=== PATIENT | female | born 1970 | race Caucasian/White ===

== ENCOUNTER 2020-11-02 02:43 | Emergency (ER) | payer BC ==
[2020-11-02] MEDS ORDERED: METHYLPREDNISOLONE 125 MG INJ ONE (03:41)
[2020-11-02] MEDS ORDERED: LORazepam 2 MG/ML VIAL ONE (03:42)
[2020-11-02] MEDS ORDERED: DIPHENHYDRAMINE 50 MG/ML VIAL ONE (03:42)
[2020-11-02] MEDS ORDERED: NA CHLORIDE 0.9% 1,000 ML ONE (03:42)
[2020-11-02] MEDS ORDERED: ONDANSETRON 4 MG/2 ML VIAL ONE (03:42)
[2020-11-02 03:47] LABS: Absolute Lymphocytes (CBC) 2.1 K/uL (0.7-4.9); Basophils % 0.5 % (0-1.3); Hematocrit 42.8 % (36.0-45.0); Lymphocytes % 27.7 % (15.3-44.8); MPV 8.7 fL (7.6-11.3); RBC Red Blood Cell Count 4.64 M/uL (3.86-4.86)
[2020-11-02 04:00] LABS: Albumin 3.6 g/dL (3.4-5.0); Bilirubin Direct 0.1 mg/dL (0-0.2); Bilirubin Total 0.5 mg/dL (0.2-1.0); Magnesium 2.4 mg/dL (1.8-2.4); Potassium 3.4 mmol/L (3.5-5.1); Protein, Total 7.1 g/dL (6.4-8.2)
--- NOTE | 2020-11-02 04:56 | ER ---
Nurse's Notes [facility] Name: Fernanda Booker Age: 49 yrs Sex: Female : 1970 Arrival Date: 11/02/2020 Time: 02:44 Bed 12 Private MD: Diagnosis: Rash and other nonspecific skin eruption Presentation: 11/02 02:50 Chief complaint: Patient states: COVID sine Saturday before last, started on Zithromax iw and Medrol pack yesterday, tonight she broke out in red rash on her face ,feels really hot. Coronavirus screen: Client presents with at least one sign or symptom that may indicate coronavirus-19. Client reports previous positive COVID test result. Ebola Screen: Patient negative for fever greater than or equal to 101.5 degrees Fahrenheit, and additional compatible Ebola Virus Disease symptoms Patient denies exposure to infectious person. Patient denies travel to an Ebola-affected area in the 21 days before illness onset. No symptoms or risks identified at this time. Onset: The symptoms/episode began/occurred today. Anaphylaxis evaluation, no signs or symptoms of anaphylaxis were noted. Initial Sepsis Screen: Does the patient meet any 2 criteria? No. Patient's initial sepsis screen is negative. Does the patient have a suspected source of infection? No. Patient's initial sepsis screen is negative. Risk Assessment: Do you want to hurt yourself or someone else? Patient reports no desire to harm self or others. Onset of symptoms was November 02, 2020. 02:50 Method Of Arrival: Ambulatory iw 02:50 Acuity: TATIANA 3 iw Historical: - Allergies: 02:53 SHELLFISH; iw - Home Meds: 02:53 losartan 100 mg oral tab 1 tab once daily [Active]; sertraline 100 mg oral tab 1 tab iw once daily [Active]; - PMHx: 02:53 Hypertensive disorder; Anxiety; iw - PSHx: 02:53 hysterectomy; iw - Immunization history:: Client reports receiving the Mario \T\ Mario single-dose vaccine. - Social history:: Smoking status: Patient denies any tobacco usage or history of. Patient/guardian denies using alcohol, street drugs, The patient lives with family. - Family history:: not pertinent. Screenin:22 Abuse screen: Denies threats or abuse. Nutritional screening: No deficits noted. em Tuberculosis screening: No symptoms or risk factors identified. Fall Risk None identified. Assessment: 03:30 General: Appears in no apparent distress. comfortable, Behavior is cooperative, em anxious. Pain: Denies pain. Neuro: Level of Consciousness is awake, alert, obeys commands, Oriented to person, place, time, situation. Cardiovascular: Capillary refill < 3 seconds Patient's skin is warm and dry. Respiratory: Airway is patent Respiratory effort is even, unlabored, Respiratory pattern is regular, symmetrical. Derm: Rash noted that is urticaria, on face, right arm and left arm. Musculoskeletal: Capillary refill < 3 seconds, Range of motion: intact in all extremities. 04:23 Reassessment: Patient appears in no apparent distress at this time. Patient is alert, em oriented x 3, equal unlabored respirations, skin warm/dry/pink. Patient states feeling better. Patient states symptoms have improved. 05:07 Respiratory: Breath sounds are clear. wg Vital Signs: 02:50 BP 200 / 107; Pulse 84; Resp 16; Temp 98.4; Pulse Ox 100% on R/A; Weight 72.57 kg; iw Height 5 ft. 8 in. (172.72 cm); 03:25 BP 193 / 90; em 04:21 BP 145 / 85; Pulse 76; Resp 18; Pulse Ox 96% on R/A; em 05:05 BP 151 / 78; Pulse 86; Resp 18; Pulse Ox 100% on R/A; Pain 0/10; wg 02:50 Body Mass Index 24.33 (72.57 kg, 172.72 cm) iw ED Course: 02:44 Patient arrived in ED. wm 02:53 Triage completed. iw 02:54 Edelmira Calixto MD is Attending Physician. ma2 02:54 Arm band placed on. iw 03:14 Kirby Santos, RN is Primary Nurse. em 03:22 Patient has correct armband on for positive identification. em 03:22 No provider procedures requiring assistance completed. em 03:30 Initial lab(s) drawn, by me, sent to lab. Inserted saline lock: 20 gauge in right em antecubital area, using aseptic technique. Blood collected. 05:06 IV discontinued, intact, bleeding controlled, No redness/swelling at site. Pressure wg dressing applied. Administered Medications: 03:31 Drug: NS 0.9% 1000 ml Route: IV; Rate: 1 bolus; Site: right antecubital; em 05:08 Follow up: IV Status: Completed infusion; IV Intake: 1000ml wg 03:31 Drug: Zofran (Ondansetron) 4 mg Route: IVP; Site: right antecubital; em 05:08 Follow up: Response: No adverse reaction wg 03:31 Drug: Ativan (LORazepam) 0.5 mg Route: IVP; Site: right antecubital; em 05:08 Follow up: Response: No adverse reaction wg 03:31 Drug: Benadryl (diphenhydrAMINE) 50 mg Route: IVP; Site: right antecubital; em 05:08 Follow up: Response: No adverse reaction wg 03:31 Drug: SOLU-Medrol (methylPrednisoLONE) 125 mg Route: IVP; Site: right antecubital; em 05:07 Follow up: Response: No adverse reaction wg Intake: 05:08 IV: 1000ml; Total: 1000ml. wg Outcome: 04:56 Discharge ordered by MD. herring 05:06 Discharged to home ambulatory. wg 05:06 Condition: stable 05:06 Discharge instructions given to patient, Instructed on discharge instructions, follow up and referral plans. medication usage, Demonstrated understanding of instructions, follow-up care, medications, Prescriptions given X 2. 05:09 Patient left the ED. wg Signatures: Kirby Santos RN RN em Williams, Irene, RN RN iw Alzahri, Mohammad, MD MD ma2 Marsh, Wendy wm Gamba, Liam, RN wg Corrections: (The following items were deleted from the chart) 02:54 02:53 Allergies: No Known Allergies; [facility]
--- NOTE | 2020-11-02 04:56 | EDPHYS ---
Physician Documentation [facility] Name: Fernanda Booker Age: 49 yrs Sex: Female : 1970 Arrival Date: 11/02/2020 Time: 02:44 Bed 12 Private MD: ED Physician Edelmira Calixto HPI: 11/02 03:11 This 49 yrs old Female presents to ER via Ambulatory with complaints of ma2 Allergic Reaction, + Covid. 03:11 The patient presents with itching, redness of skin. Onset: The symptoms/episode ma2 began/occurred gradually, 1 hour(s) ago. Associated signs and symptoms: Pertinent positives: hives, rash, Pertinent negatives: chest pain, fever, headache, Light headed nausea, swelling. Severity of symptoms: At their worst the symptoms were mild in the emergency department the symptoms are unchanged. The patient has not experienced similar symptoms in the past. Historical: - Allergies: 02:53 SHELLFISH; iw - Home Meds: 02:53 losartan 100 mg oral tab 1 tab once daily [Active]; sertraline 100 mg oral tab 1 tab iw once daily [Active]; - PMHx: 02:53 Hypertensive disorder; Anxiety; iw - PSHx: 02:53 hysterectomy; iw - Immunization history:: Client reports receiving the Mario \T\ Mario single-dose vaccine. - Social history:: Smoking status: Patient denies any tobacco usage or history of. Patient/guardian denies using alcohol, street drugs, The patient lives with family. - Family history:: not pertinent. ROS: 03:11 Constitutional: Negative for fever, chills, and weight loss. ma2 03:11 All other systems are negative. Exam: 03:11 Constitutional: This is a well developed, well nourished patient who is awake, alert, ma2 and in no acute distress. Head/Face: there is facial redness and warmth, airway is wnl, no swelling or stridor, no tongu swelling, otherwise Normocephalic, atraumatic. Eyes: Pupils equal round and reactive to light, extra-ocular motions intact. Lids and lashes normal. Conjunctiva and sclera are non-icteric and not injected. Cornea within normal limits. Periorbital areas with no swelling, redness, or edema. ENT: Nares patent. No nasal discharge, no septal abnormalities noted. Tympanic membranes are normal and external auditory canals are clear. Oropharynx with no redness, swelling, or masses, exudates, or evidence of obstruction, uvula midline. Mucous membranes moist. Neck: Trachea midline, no thyromegaly or masses palpated, and no cervical lymphadenopathy. Supple, full range of motion without nuchal rigidity, or vertebral point tenderness. No Meningismus. Chest/axilla: Normal chest wall appearance and motion. Nontender with no deformity. No lesions are appreciated. Cardiovascular: Regular rate and rhythm with a normal S1 and S2. No gallops, murmurs, or rubs. Normal PMI, no JVD. No pulse deficits. Respiratory: Lungs have equal breath sounds bilaterally, clear to auscultation and percussion. No rales, rhonchi or wheezes noted. No increased work of breathing, no retractions or nasal flaring. Abdomen/GI: Soft, non-tender, with normal bowel sounds. No distension or tympany. No guarding or rebound. No evidence of tenderness throughout. Back: No spinal tenderness. No costovertebral tenderness. Full range of motion. Skin: Warm, dry with normal turgor. Normal color with no rashes, no lesions, and no evidence of cellulitis. MS/ Extremity: Pulses equal, no cyanosis. Neurovascular intact. Full, normal range of motion. Neuro: Awake and alert, GCS 15, oriented to person, place, time, and situation. Cranial nerves II-XII grossly intact. Motor strength 5/5 in all extremities. Sensory grossly intact. Cerebellar exam normal. Normal gait. Vital Signs: 02:50 BP 200 / 107; Pulse 84; Resp 16; Temp 98.4; Pulse Ox 100% on R/A; Weight 72.57 kg; iw Height 5 ft. 8 in. (172.72 cm); 03:25 BP 193 / 90; em 04:21 BP 145 / 85; Pulse 76; Resp 18; Pulse Ox 96% on R/A; em 05:05 BP 151 / 78; Pulse 86; Resp 18; Pulse Ox 100% on R/A; Pain 0/10; wg 02:50 Body Mass Index 24.33 (72.57 kg, 172.72 cm) iw MDM: 02:54 Patient medically screened. ma2 03:11 Differential diagnosis: urticaria, Vasovagal Reactions. al2 04:55 Data reviewed: vital signs, nurses notes. Counseling: I had a detailed discussion with [facility] the patient and/or guardian regarding: the historical points, exam findings, and any diagnostic results supporting the discharge/admit diagnosis, the presence of at least one elevated blood pressure reading (>120/80) during this emergency department visit, the need for outpatient follow up. Response to treatment: the patient's symptoms have markedly improved after treatment. 11/02 03:10 Order name: Basic Metabolic Panel [facility] 11/02 03:10 Order name: CBC with Diff; Complete Time: 03:56 [facility] 11/02 03:10 Order name: LFT's; Complete Time: 04:56 [facility] 11/02 03:10 Order name: Magnesium; Complete Time: 04:56 [facility] 11/02 03:10 Order name: Basic Metabolic Panel; Complete Time: 04:56 [facility] 11/02 03:10 Order name: Cardiac monitoring; Complete Time: 03:31 [facility] 11/02 03:10 Order name: EKG - Nurse/Tech; Complete Time: 03:26 [facility] 11/02 03:10 Order name: IV Saline Lock; Complete Time: 03:31 [facility] 11/02 03:10 Order name: Labs collected and sent; Complete Time: 03:31 [facility] 11/02 03:10 Order name: O2 Per Protocol; Complete Time: 03:26 [facility] 11/02 03:10 Order name: O2 Sat Monitoring; Complete Time: 03:26 al2 Administered Medications: 03:31 Drug: NS 0.9% 1000 ml Route: IV; Rate: 1 bolus; Site: right antecubital; em 05:08 Follow up: IV Status: Completed infusion; IV Intake: 1000ml wg 03:31 Drug: Zofran (Ondansetron) 4 mg Route: IVP; Site: right antecubital; em 05:08 Follow up: Response: No adverse reaction wg 03:31 Drug: Ativan (LORazepam) 0.5 mg Route: IVP; Site: right antecubital; em 05:08 Follow up: Response: No adverse reaction wg 03:31 Drug: Benadryl (diphenhydrAMINE) 50 mg Route: IVP; Site: right antecubital; em 05:08 Follow up: Response: No adverse reaction 03:31 Drug: SOLU-Medrol (methylPrednisoLONE) 125 mg Route: IVP; Site: right antecubital; em 05:07 Follow up: Response: No adverse reaction wg Disposition Summary: 11/02/20 04:56 Discharge Ordered Location: Home ma2 Condition: Stable ma2 Diagnosis - Rash and other nonspecific skin eruption ma2 Followup: ma2 - With: Private Physician - When: Tomorrow - Reason: Continuance of care Discharge Instructions: - Discharge Summary Sheet ma2 - Rash, Adult ma2 Forms: - Medication Reconciliation Form ma2 - Thank You Letter ma2 - Antibiotic Education ma2 - Prescription Opioid Use ma2 Prescriptions: - Benadryl 25 mg Oral Capsule - take 1 capsule by ORAL route every 6 hours As needed; 30 tablet; Refills: 0, ma2 Product Selection Permitted - Pepcid 20 mg Oral Tablet - take 1 tablet by ORAL route every 12 hours for 10 days; 20 tablet; Refills: 0, ma2 Product Selection Permitted Signatures: Dispatcher [employer] Kirby Velez RN RN em Williams, Irene, RN RN Edelmira Calixto MD MD ma2 Giovanni Melvin RN wg Corrections: (The following items were deleted from the chart) 02:54 02:53 Allergies: No Known Allergies; [facility]
[2020-11-02 05:15] VITALS: TEMP 98.4
[2020-11-02 05:19] VITALS: BP 151/78; O2SAT 100
--- NOTE | 2020-11-02 12:50 | EKG ---
Test Date: 2020-11-02 Test Time: 03:20:35 Loading Machine Adjuster: ALMA MEASUREMENT RESULTS: Intervals: Rate: 64 WY: 140 QRSD: 84 QT: 428 QTc: 441 Shirley: P: 57 WY: 140 QRS: 50 T: 65 INTERPRETIVE STATEMENTS: Normal sinus rhythm Normal ECG No previous ECG available for comparison Electronically Signed On 11-02-20 12:50:20 CDT by Byron Russo
== END 2020-11-02 05:09 | disposition home or self-care (01) ==
LOC: ER 02:43
DX: R21 Rash and other nonspecific skin eruption (principal); I10 Essential (primary) hypertension; F41.9 Anxiety disorder, unspecified; Z91.013 Allergy to seafood
CPT/HCPCS: 96361; 93005; 85025; 80048; 36415; 83735; 80076; 96375; 96374; 99284; J1200; J7030; J2930; J2405

== ENCOUNTER 2022-10-03 10:36 | Emergency (ER) | payer BC, OTHER ==
[2022-10-03 11:05] LABS: Specific Gravity 1.019 (1.005-1.030)
[2022-10-03] MEDS ORDERED: DIAZEPAM 5 MG TABLET ONE (11:10)
[2022-10-03] MEDS ORDERED: ONDANSETRON 4 MG/2 ML VIAL ONE (11:11)
[2022-10-03] MEDS ORDERED: NA CHLORIDE 0.9% 1,000 ML ONE (11:11)
[2022-10-03] MEDS ORDERED: KETOROLAC 30 MG/ML INJ ONE (11:11)
[2022-10-03] MEDS ORDERED: FENTANYL CITR 100 MCG/2 ML ONE (11:11)
[2022-10-03] MEDS ORDERED: dexAMETHasone 10 MG/ML VIAL ONE (11:11)
[2022-10-03 11:16] LABS: Specific Gravity 1.019 (1.005-1.030); Urine Bacteria <20 /HPF (<20); Urine Bilirubin NEGATIVE (Negative); Urine Blood Negative (Negative); Urine Clarity Extremely Turbid (Clear); Urine Color Light-Yellow (Yellow); Urine Glucose NEGATIVE (Negative); Urine Mucus Slight /HPF (None Seen); Urine Protein TRACE (Negative); Urine Urobilinogen Normal (Normal)
[2022-10-03 11:18] LABS: Absolute Lymphocytes (CBC) 1.2 K/uL (0.7-4.9); Hematocrit 42.3 % (36.0-45.0); Lymphocytes % 22.2 % (15.3-44.8); MCV 90.9 fL (80-100); MPV 8.7 fL (7.6-11.3); RBC Red Blood Cell Count 4.65 M/uL (3.86-4.86)
[2022-10-03 11:22] LABS: Albumin 3.7 g/dL (3.4-5.0); Bilirubin Total 1.7 mg/dL (0.2-1.0); Potassium 3.4 mEq/L (3.5-5.1); Protein, Total 7.1 g/dL (6.4-8.2)
--- NOTE | 2022-10-03 12:02 | RAD REPORT ---
EXAM DESCRIPTION: CTSpine Lumbar Wo Con10/03/2022 11:16 am CLINICAL HISTORY: Right leg radiculopathy COMPARISON: None TECHNIQUE: Computed axial tomography lumbar spine was obtained with coronal and sagittal reconstruct ion. All CT scans are performed using dose optimization technique as appropriate and may include automated exposure control or mA/KV adjustment according to patient size. FINDINGS: No fracture is seen. No dislocation Mild ligamentum flavum and set hypertrophy L3-4. Thecal sac 10 millimeters. Neural foramina patent Small to moderate right posterolateral disc herniation suspected L4-5. Mild spondylosis L5-S1 IMPRESSION: Small to moderate right posterolateral disc herniation is suspected at L4-5. Further braulio luation with nonemergent MRI could be obtained
[2022-10-03] MEDS ORDERED: POTASSIUM 25 MEQ EFFERV TAB ONE (12:08)
--- NOTE | 2022-10-03 12:09 | EDPHYS ---
Physician Documentation [facility] Name: Fernanda Das Age: 51 yrs Sex: Female : 1970 Arrival Date: 10/03/2022 Time: 10:36 Bed 19 Private MD: SAVANNA Physician Eric Clemens HPI: 10/03 10:49 This 51 yrs old Female presents to ER via EMS with complaints of back pain to paz right leg. 10:49 The patient presents with pain that is acute, and decreased range of motion. The paz symptoms are located in the low back, lumbar area and right low back. Onset: The symptoms/episode began/occurred 1 day(s) ago. The pain radiates to the right low back. Associated signs and symptoms: The patient has no apparent associated signs or symptoms. The problem was sustained when lifting boxes. Modifying factors: The patient symptoms are alleviated by nothing, remaining still, rest, the patient symptoms are aggravated by lifting, movement, standing. Severity of symptoms: At their worst the symptoms were moderate, in the emergency department the symptoms are unchanged. Historical: - Allergies: 10:44 SHELLFISH; ld1 - Home Meds: 10:44 losartan 100 mg Oral tab 1 tab once daily [Active]; sertraline 100 mg Oral tab 1 tab ld1 once daily [Active]; - PMHx: 10:44 Anxiety; Hypertensive disorder; ld1 - PSHx: 10:44 hysterectomy; Appendectomy; ld1 - Immunization history:: Adult Immunizations up to date, Client reports receiving the 2nd dose of the Covid vaccine. - Social history:: Smoking status: Patient denies any tobacco usage or history of. Patient/guardian denies using alcohol. - Family history:: not pertinent. ROS: 10:49 Constitutional: Negative for fever, chills, and weight loss, Eyes: Negative for injury, paz pain, redness, and discharge, ENT: Negative for injury, pain, and discharge, Neck: Negative for injury, pain, and swelling, Cardiovascular: Negative for chest pain, palpitations, and edema, Respiratory: Negative for shortness of breath, cough, wheezing, and pleuritic chest pain, Abdomen/GI: Negative for abdominal pain, nausea, vomiting, diarrhea, and constipation, : Negative for injury, bleeding, discharge, and swelling, MS/Extremity: Negative for injury and deformity, Skin: Negative for injury, rash, and discoloration, Neuro: Negative for headache, weakness, numbness, tingling, and seizure, Psych: Negative for depression, anxiety, suicide ideation, homicidal ideation, and hallucinations, Allergy/Immunology: Negative for hives, rash, and allergies, Endocrine: Negative for neck swelling, polydipsia, polyuria, polyphagia, and marked weight changes, Hematologic/Lymphatic: Negative for swollen nodes, abnormal bleeding, and unusual bruising. 10:49 Back: Positive for pain at rest, pain with movement, radiated pain, of the right low back. Exam: 10:49 Constitutional: This is a well developed, well nourished patient who is awake, alert, paz and in no acute distress. Head/Face: Normocephalic, atraumatic. Eyes: Pupils equal round and reactive to light, extra-ocular motions intact. Lids and lashes normal. Conjunctiva and sclera are non-icteric and not injected. Cornea within normal limits. Periorbital areas with no swelling, redness, or edema. ENT: Nares patent. No nasal discharge, no septal abnormalities noted. Tympanic membranes are normal and external auditory canals are clear. Oropharynx with no redness, swelling, or masses, exudates, or evidence of obstruction, uvula midline. Mucous membranes moist. Neck: Trachea midline, no thyromegaly or masses palpated, and no cervical lymphadenopathy. Supple, full range of motion without nuchal rigidity, or vertebral point tenderness. No Meningismus. Chest/axilla: Normal chest wall appearance and motion. Nontender with no deformity. No lesions are appreciated. Cardiovascular: Regular rate and rhythm with a normal S1 and S2. No gallops, murmurs, or rubs. Normal PMI, no JVD. No pulse deficits. Respiratory: Lungs have equal breath sounds bilaterally, clear to auscultation and percussion. No rales, rhonchi or wheezes noted. No increased work of breathing, no retractions or nasal flaring. Abdomen/GI: Soft, non-tender, with normal bowel sounds. No distension or tympany. No guarding or rebound. No evidence of tenderness throughout. Skin: Warm, dry with normal turgor. Normal color with no rashes, no lesions, and no evidence of cellulitis. MS/ Extremity: Pulses equal, no cyanosis. Neurovascular intact. Full, normal range of motion. Neuro: Awake and alert, GCS 15, oriented to person, place, time, and situation. Cranial nerves II-XII grossly intact. Motor strength 5/5 in all extremities. Sensory grossly intact. Cerebellar exam normal. Normal gait. Psych: Awake, alert, with orientation to person, place and time. Behavior, mood, and affect are within normal limits. 10:49 Back: pain, that is mild, that is moderate, ROM is painful, normal spinal alignment noted, CVA tenderness, is absent, vertebral tenderness, is not appreciated, muscle spasm, is appreciated in the left low back, left mid back, right mid back and right low back. Vital Signs: 10:42 BP 139 / 86; Pulse 65; Resp 18; Temp 98.2(O); Pulse Ox 100% on R/A; Weight 72.57 kg; ld1 Height 5 ft. 8 in. ; Pain 8/10; 10:42 Body Mass Index 24.33 (72.57 kg, 172.72 cm) ld1 10:42 Pain Scale: Adult ld1 MDM: 10:39 Patient medically screened. paz 10:49 Differential diagnosis: chronic back pain, Fracture Osteoporosis Pyelonephritis paz ruptured disc, spinal injury, sprain, vertebral fracture. Data reviewed: vital signs, nurses notes, lab test result(s), CBC, electrolytes, hepatic panel, radiologic studies, CT scan. Consideration of Admission/Observation Escalation of care including admission/observation considered. I considered the following discharge prescriptions or medication management in the emergency department Medications were administered in the Emergency Department. See MAR. Test considered but Not performed: CT: ct lumbar. Care significantly affected by the following chronic conditions: Hypertension, anxiety. Counseling: I had a detailed discussion with the patient and/or guardian regarding: the historical points, exam findings, and any diagnostic results supporting the discharge/admit diagnosis, lab results, radiology results, the need for outpatient follow up, for definitive care, a family practitioner, a neurologist. 10/03 10:44 Order name: CBC with Diff; Complete Time: 11:32 [facility] 10/03 10:44 Order name: Comprehensive Metabolic Panel; Complete Time: 11:32 [facility] 10/03 10:44 Order name: Urinalysis w/ reflexes; Complete Time: 11:32 [facility] 10/03 10:44 Order name: PREGU; Complete Time: 11:32 paz 10/03 10:44 Order name: CT Lumbar Spine Wo Con paz Administered Medications: 11:10 Drug: Ondansetron IVP 4 mg Route: IVP; Site: right antecubital; ld1 11:10 Drug: Decadron - Dexamethasone IVP 10 mg Route: IVP; Site: right antecubital; ld1 11:10 Drug: Diazepam PO 10 mg Route: PO; ld1 11:10 Drug: fentaNYL (PF) IVP 50 mcg Route: IVP; Site: right antecubital; ld1 11:11 Drug: NS 0.9% IV 1000 ml Route: IV; Rate: 1000 ml; Site: right antecubital; ld1 11:11 Drug: Ketorolac IVP 30 mg Route: IVP; Site: right antecubital; ld1 12:05 Drug: Potassium PO Effervescent Tablet 25 mEq Route: PO; ld1 Disposition Summary: 10/03/22 12:08 Discharge Ordered Location: Home paz Problem: new paz Symptoms: have improved paz Condition: Stable paz Diagnosis - Sciatica, right side paz - Lumbago with sciatica, right side paz - Hypokalemia paz - Other intervertebral disc disorders, lumbar region - small posterior lateral L4-L5, paz HERNIATION Followup: paz - With: Private Physician - When: 2 - 3 days - Reason: Recheck today's complaints, Continuance of care, Re-evaluation by your physician Followup: paz - With: - When: 2 - 3 days - Reason: Recheck today's complaints, Re-evaluation by your physician Discharge Instructions: - Discharge Summary Sheet paz - Chronic Back Pain paz - Potassium Content of Foods paz - Herniated Disk paz - Sciatica paz - Sciatica, [id number] paz - Hypokalemia paz - Herniated Disk, [id number] paz - Radicular Pain paz - Back Exercises paz Forms: - Medication Reconciliation Form paz - Thank You Letter paz - Antibiotic Education paz - Prescription Opioid Use paz - Patient Portal Instructions paz Prescriptions: - acetaminophen-codeine 300-30 mg Oral tablet - take 2 tablet by ORAL route every 6 hours; 20 tablet; Refills: 0, Product paz Selection Permitted - dexamethasone 2 mg Oral tablet - take 1 tablet by ORAL route every 12 hours; 10 tablet; Refills: 0, Product paz Selection Permitted - Diclofenac Sodium 75 mg Oral Tablet Sustained Release - take 1 tablet by ORAL route 2 times per day; 30 tablet; Refills: 0, Product paz Selection Permitted - Cyclobenzaprine 5 mg Oral Tablet - take 1 tablet by ORAL route 3 times per day As needed; 15 tablet; Refills: 0, [facility] Product Selection Permitted Signatures: Dispatcher [employer] Eric Goff MD MD cha Sims, Lauren RN RN ld1
--- NOTE | 2022-10-03 12:09 | ER ---
Nurse's Notes [facility] Name: Fernanda Das Age: 51 yrs Sex: Female : 1970 Arrival Date: 10/03/2022 Time: 10:36 Bed 19 Private MD: Diagnosis: Sciatica, right side;Lumbago with sciatica, right side;Hypokalemia;Other intervertebral disc disorders, lumbar region-small posterior lateral L4-L5, HERNIATION Presentation: 10/03 10:42 Chief complaint: Patient states: Lower back pain - tweaked it at home this morning. ld1 Pain radiates from lower back down to right hip/down right leg. Coronavirus screen: At this time, the client does not indicate any symptoms associated with coronavirus-19. Ebola Screen: No symptoms or risks identified at this time. Initial Sepsis Screen: Does the patient meet any 2 criteria? No. Patient's initial sepsis screen is negative. Does the patient have a suspected source of infection? No. Patient's initial sepsis screen is negative. Risk Assessment: Do you want to hurt yourself or someone else? Patient reports no desire to harm self or others. Onset of symptoms was October 03, 2022 at 10:43. 10:42 Method Of Arrival: EMS: [facility] ld1 10:42 Acuity: TATIANA 3 ld1 Triage Assessment: 10:44 General: Appears in no apparent distress. uncomfortable, Behavior is calm, cooperative, ld1 appropriate for age. Pain: Complains of pain in low back area Pain radiates to right hip and right leg Pain Quality of pain is described as sharp, shooting, throbbing, Pain began 1 day ago. Is continuous. EENT: No signs and/or symptoms were reported regarding the EENT system. Neuro: Level of Consciousness is awake, alert, obeys commands, Oriented to person, place, time, situation. Cardiovascular: Capillary refill < 3 seconds Patient's skin is warm and dry. Respiratory: Airway is patent Respiratory effort is even, unlabored. GI: Abdomen is flat, non-distended. : No signs and/or symptoms were reported regarding the genitourinary system. Derm: No signs and/or symptoms reported regarding the dermatologic system. Musculoskeletal: No signs and/or symptoms reported regarding the musculoskeletal system. Historical: - Allergies: 10:44 SHELLFISH; ld1 - Home Meds: 10:44 losartan 100 mg Oral tab 1 tab once daily [Active]; sertraline 100 mg Oral tab 1 tab ld1 once daily [Active]; - PMHx: 10:44 Anxiety; Hypertensive disorder; ld1 - PSHx: 10:44 hysterectomy; Appendectomy; ld1 - Immunization history:: Adult Immunizations up to date, Client reports receiving the 2nd dose of the Covid vaccine. - Social history:: Smoking status: Patient denies any tobacco usage or history of. Patient/guardian denies using alcohol. - Family history:: not pertinent. Screenin:46 [facility] ED Fall Risk Assessment (Adult) History of falling in the last 3 months, ld1 including since admission No falls in past 3 months (0 pts). Abuse screen: Denies threats or abuse. Denies injuries from another. Nutritional screening: No deficits noted. Tuberculosis screening: No symptoms or risk factors identified. Assessment: 10:46 Reassessment: See triage assessment. ld1 Vital Signs: 10:42 BP 139 / 86; Pulse 65; Resp 18; Temp 98.2(O); Pulse Ox 100% on R/A; Weight 72.57 kg; ld1 Height 5 ft. 8 in. ; Pain 8/10; 10:42 Body Mass Index 24.33 (72.57 kg, 172.72 cm) ld1 10:42 Pain Scale: Adult ld1 ED Course: 10:39 Patient arrived in ED. paz 10:39 Eric Clemens MD is Attending Physician. paz 10:40 Melanie Dixon, RN is Primary Nurse. ld1 10:43 Triage completed. ld1 10:44 Arm band placed on right wrist. ld1 10:46 Patient has correct armband on for positive identification. Placed in gown. Bed in low ld1 position. Call light in reach. Side rails up X2. final block press operator on. Pulse ox on. NIBP on. Door closed. Noise minimized. Warm blanket given. 10:46 No provider procedures requiring assistance completed. ld1 11:11 Urinalysis w/ reflexes Sent. ld1 11:11 Comprehensive Metabolic Panel Sent. ld1 11:11 CBC with Diff Sent. ld1 11:11 Inserted saline lock: 20 gauge in right antecubital area, using aseptic technique. ld1 Blood collected. 11:16 CT Lumbar Spine Wo Con In Process Unspecified. [facility]OK 12:07 Tramaine Garnett MD is Referral Physician. [facility] 13:03 IV discontinued, intact, bleeding controlled, No redness/swelling at site. ll1 Administered Medications: 11:10 Drug: Ondansetron IVP 4 mg Route: IVP; Site: right antecubital; ld1 11:10 Drug: Decadron - Dexamethasone IVP 10 mg Route: IVP; Site: right antecubital; ld1 11:10 Drug: Diazepam PO 10 mg Route: PO; ld1 11:10 Drug: fentaNYL (PF) IVP 50 mcg Route: IVP; Site: right antecubital; ld1 11:11 Drug: NS 0.9% IV 1000 ml Route: IV; Rate: 1000 ml; Site: right antecubital; ld1 11:11 Drug: Ketorolac IVP 30 mg Route: IVP; Site: right antecubital; ld1 12:05 Drug: Potassium PO Effervescent Tablet 25 mEq Route: PO; ld1 Medication: 10:46 VIS not applicable for this client. ld1 Outcome: 12:08 Discharge ordered by . [facility] 13:03 Discharged to home ambulatory. 1 13:03 Condition: stable 13:03 Discharge instructions given to patient, Instructed on discharge instructions, follow up and referral plans. medication usage, Demonstrated understanding of instructions, follow-up care, medications, Prescriptions given X 4. 13:03 Patient left the ED. ll1 Signatures: Dispatcher [employer] [facility] Eric Clemens MD MD cha Lewis, Lynsay, RN RN ll1 Melanie Dixon RN RN ld1
[2022-10-03 13:26] VITALS: BP 139/86; TEMP 98.2; O2SAT 100
== END 2022-10-03 13:03 | disposition home or self-care (01) ==
LOC: ER 10:36
DX: M54.41 Lumbago with sciatica, right side (principal); E87.6 Hypokalemia; M51.86 Other intervertebral disc disorders, lumbar region; I10 Essential (primary) hypertension; F41.9 Anxiety disorder, unspecified; Z91.013 Allergy to seafood
CPT/HCPCS: 85025; 81001; 36415; 81025; 80053; 72131; J3010; J1100; J2405; J7030